=== PATIENT | female | born 1965 | race Caucasian/White ===

== ENCOUNTER → 2016-05-23 | Outpatient (CLI) | payer BC ==
[~2016-05-23] MED LIST: CHLO4TAB PO; ERGO500037 PO; FLUT50SP14 NAE; LORA10CA2 PO; MULTTAB58 PO; TYLER650 PO; biotin PO
--- NOTE | 2016-05-24 15:37 | MAMMOGRAPHY REPORT ---
BILATERAL DIGITAL SCREENING MAMMOGRAM TOMOSYNTHESIS WITH CAD: 05/23/2016 CLINICAL HISTORY: Routine screening. Patient has no complaints. TECHNIQUE: Breast tomosynthesis in addition to standard 2D mammography was performed. Current study was also evaluated with a Computer Aided Detection (CAD) system. COMPARISON: Comparison is made to exams dated: 06/08/2015 mammogram, 06/08/2015 stereotactic biopsy, 05/27/2015 mammogram, 05/27/2015 ultrasound, and 05/16/2014 mammogram - [facility]. BREAST COMPOSITION: The tissue of both breasts is heterogeneously dense, which may obscure small ma sses. FINDINGS: There are stable metallic biopsy markers in each upper outer quadrant. There are scattere d and grouped round and punctate microcalcifications, stable bilaterally. No new suspicious mass, a rchitectural distortion or cluster of microcalcifications is seen. IMPRESSION: ACR BI-RADS CATEGORY 1: NEGATIVE There is no mammographic evidence of malignancy. A 1 year screening mammogram is recommended. The p atient will receive written notification of the results. Approximately 10% of breast cancers are not detected with mammography. A negative mammographic repor t should not delay biopsy if a clinically suggestive mass is present. Mariam Canas M.D. ay/:05/24/2016 15:31:13 Freight Caller: Jes Lopez, [facility] letter sent: Normal 1/2 BI-RADS Code: ACR BI-RADS Category 1: Negative
== END | disposition home or self-care (01) ==
LOC: C.MAMM 07:53
PROVIDERS: ATTEND Internal Medicine
DX: Z12.31 Encounter for screening mammogram for malignant neoplasm of breast (principal)

== ENCOUNTER → 2017-06-27 | Outpatient (CLI) | payer BC ==
--- NOTE | 2017-06-29 08:01 | MAMMOGRAPHY REPORT ---
BILATERAL DIGITAL SCREENING MAMMOGRAM TOMOSYNTHESIS WITH CAD: 06/27/2017 CLINICAL HISTORY: Routine screening. Patient has no complaints. TECHNIQUE: Breast tomosynthesis in addition to standard 2D mammography was performed. Current study was also evaluated with a Computer Aided Detection (CAD) system. COMPARISON: Comparison is made to exams dated: 05/23/2016 mammogram, 05/18/2015 mammogram, 05/16/2014 m ammogram, 05/15/2013 mammogram, 05/09/2012 mammogram, and 05/04/2011 mammogram - [facility]. BREAST COMPOSITION: The tissue of both breasts is heterogeneously dense, which may obscure small mas ses. FINDINGS: No new suspicious mass, architectural distortion or cluster of suspicious microcalcificati ons is seen. There are diffuse round and punctate microcalcifications scattered in the breasts. Sta ble biopsy marker clips in each upper outer quadrant. IMPRESSION: ACR BI-RADS CATEGORY 1: NEGATIVE There is no mammographic evidence of malignancy. A 1 year screening mammogram is recommended. The pa tient will receive written notification of the results. Approximately 10% of breast cancers are not detected with mammography. A negative mammographic report should not delay biopsy if a clinically suggestive mass is present. Mariam Canas M.D. ay/:06/27/2017 17:08:27 Bale Sewer: Aundrea ZHU)(M), [facility] letter sent: Normal 1/2 BI-RADS Code: ACR BI-RADS Category 1: Negative
== END | disposition home or self-care (01) ==
LOC: C.MAMM 13:32
PROVIDERS: ATTEND Internal Medicine
DX: Z12.31 Encounter for screening mammogram for malignant neoplasm of breast (principal)

== ENCOUNTER 2023-04-20 15:37 | Inpatient (IN) ==
[2023-04-20 16:43] LABS: Basophils # (auto) 0.05 K/uL (0.00-0.20); Basophils % (auto) 0.9 %; Eosinophils # (auto) 0.08 K/uL (0.00-0.50); Eosinophils % (auto) 1.4 %; Hemoglobin 14.3 g/dl (12.0-16.0); Immature Granulocytes # (auto) 0.01 K/uL (0.01-0.20); Immature Granulocytes % (auto) 0.2 %; Lymphocytes # (auto) 1.16 K/uL (1.20-3.40); Lymphocytes % (auto) 20.1 %; Mean Corpuscular Hemoglobin 30.9 pg (25.0-34.0); Mean Corpuscular Hgb Conc 32.5 g/dL (32.0-36.0); Mean Platelet Volume 10.2 fL (9.4-12.4); Monocytes # (auto) 0.44 K/uL (0.11-0.59); Monocytes % (auto) 7.6 %; Neutrophils # (auto) 4.03 K/uL (1.40-6.50); Neutrophils % (auto) 69.8 %; Platelet Count 295 K/uL (130-400); RDW Coefficient of Variation 13.2 % (11.5-14.5); RDW Standard Deviation 45.5 fL (36.4-46.3); Red Blood Count 4.63 M/uL (4.20-5.40); White Blood Count 5.77 K/ul (4.8-10.8)
[2023-04-20 17:02] LABS: Albumin Globulin Ratio 1.5 (0.9-2); Albumin Level 4.4 gm/dl (3.4-5.0); BUN Creatinine Ratio 19.3 (10-20); Bilirubin,Total 0.5 mg/dl (0.2-1.0); Calcium 9.3 mg/dl (8.6-10.3); Creatinine Clr Calc Pharmacy 83.7 ml/min; Est GFR (African American) 90.1 ml/min; Est GFR (Non-African American) 77.7 ml/min; Globulin 2.9 gm/dl (2.5-4.0); Total Protein 7.3 gm/dl (6.0-8.3)
[2023-04-20 17:05] LABS: Appearance Urine Clear (Clear); Bilirubin Urine Negative (Negative); Blood Urine Negative (Negative); Color Urine Yellow; Glucose Urine UA Negative (Negative); Ketones Urine Trace (Negative); Leukocyte Esterase Urine Negative (Negative); Nitrite Urine Negative (Negative); Protein Urine Negative (Negative); Specific Gravity Urine 1.013 (1.000-1.030); Urobilinogen Urine Negative (Negative)
--- NOTE | 2023-04-20 19:58 | CT Scan Report ---
Exam(s): CT ABDOMEN + PELVIS Without Contrast EXAM: CT Abdomen and Pelvis Without Intravenous Contrast CLINICAL HISTORY: Reason for exam: right flank pain. TECHNIQUE: Axial computed tomography images of the abdomen and pelvis without intravenous contrast. CTDI is 27.66 mGy and DLP is 1294.13 mGy-cm. Automated exposure control was utilized for the study. A dose lowering technique was utilized adhering to the principles of ALARA. COMPARISON: CT abdomen/pelvis on 12/15/2009. FINDINGS: Lung bases: Lower lung atelectasis. Heart: Small to moderate pericardial effusion. ABDOMEN: Liver: Unremarkable. Gallbladder and bile ducts: Unremarkable. No calcified stones. No ductal dilation. Pancreas: Unremarkable. No ductal dilation. Spleen: Unremarkable. No splenomegaly. Adrenals: Unremarkable. No mass. Kidneys and ureters: Unremarkable. No hydronephrosis or stone. Stomach and bowel: Mild prominence of the wall of the ascending colon with mild fat stranding could represent colitis. Fluid and gas-filled small bowel loops may represent enteritis in the appropriate clinical setting. Evaluation of the stomach is limited by underdistention. Diverticulosis without evidence of diverticulitis. PELVIS: Appendix: Normal appendix. Bladder: Unremarkable. No stones. Reproductive: Unremarkable as visualized. ABDOMEN and PELVIS: Intraperitoneal space: Unremarkable. No free air. No significant fluid collection. Bones/joints: Grade 1/2 anterolisthesis of L5 on S1. Probable small bone islands in the L5 vertebral body and pelvic bones. Degenerative changes of the spine. No acute fracture. No dislocation. Soft tissues: Unremarkable. Vasculature: Phleboliths in the pelvis. No abdominal aortic aneurysm. Lymph nodes: Unremarkable. No enlarged lymph nodes. IMPRESSION: 1. Small to moderate pericardial effusion. 2. Mild prominence of the wall of the ascending colon with mild fat stranding could represent colitis. 3. Fluid and gas-filled small bowel loops may represent enteritis in the appropriate clinical setting. Electronically signed by: Pino Majano M.D. 04/20/23 19:57 PM
[2023-04-20] MEDS ORDERED: ACETAMINOPHEN 1,000 MG/100 ML VIAL IV STA (21:36)
[2023-04-20] MEDS ORDERED: SODIUM CHLORIDE 0.9% 1,000 ML IV ONE (21:41)
[2023-04-20 22:07] LABS: Magnesium 2.1 mg/dl (1.7-2.4)
[2023-04-20 22:15] LABS: Troponin I High Sensitivity 2.4 pg/ml (0-14)
--- OUTSIDE RECORDS SUMMARY | 2023-04-20 22:22 | External Medical Summary | Summary of Care ---
Author Name Unknown Organization [facility] Address [address] [place] [address] Phone [phone] Care Team Providers Care Director Of Volunteer Services Name Role Phone Rose Mary Mederos MD Primary Care Provider [phone] Reason for Visit * Reason Comments Acute Patient presents wit h concerns for mid back pain, on going for 1 month. Patient denied any injury that she is aware of. Encounter Details Date Type Department Care Team (Late st Contact Info) Description 04/18/2023 11:00 AM EST Office Visit General Internal Medicine [facility] [address] [place] [address] Shanon Doshi MD [address] [place] [address] Rt flank pain*; Spasm of muscle Allergies Active Allergy Reactions Criticality Noted Date Comments Ibuprofen 11/08/2017 GI upset, hemorrhoid bleeding Aspirin 01/11/2013 Dust 05/09/2016 Nickel Other (Please comment) 11/17/2009 Itching and rash Nsaids Bleeding,Nausea/vomi ti ng High 11/27/2018 Blood in stools Sulfa Antibiotics Itching 11/12/2008 documented as of this encounter (statuses as of 04/18/2023) Medications Medication Sig Dispensed Refills Start Date End Date Status EQ CHLORTABS 4 MG PO TABS Take by mouth. 0 Active CLARITIN 10 MG PO CAPS one tablet daily 0 Active TYLENOL EXTRA STRENGTH 500 MG PO TABS 1 TABLET EVERY 4 HOURS NEEDED 0 11/15/2013 Active FLUTICASONE PROPIONATE 50 MCG/ACT NA SUSPIndications:Supervisor Order Takers hari rhinitis 2 sprays in each nostril daily as needed 1 Inhaler 2 04/16/2014 Active Albuterol Sulfate HFA 108 (90 Base) MCG/ACT Inhalation Aerosol Solution Inhale 2 Puffs by mouth every 4 hours as needed. 0 09/30/2020 Active Estradiol 0.1 MG/GM Vaginal Cream (Estrace)Indications :Vaginal atrophy Administer 0.5 g into the vagina twice a week. Use at bedtime. Use as directed. 42.5 g 3 04/12/2022 Active Levothyroxine Sodium 75 MCG Oral Tablet (Levoxyl)Indications :Hypothyroidism, postsurgical TAKE 1 TABLET BY MOUTH ONCE DAILY AT LEAST 30 MINUTES BEFORE BREAKFAST OR OTHER MEDS 90 Tablet 3 07/18/2022 Active tiZANidine HCl 4 MG Oral Tablet (Zanaflex)Indication s:Rt flank pain,Spasm of muscle Take 1 Tablet by mouth every 8 hours as needed for Muscle spasms. 14 Tablet 0 04/18/2023 Active documented as of this encounter (statuses as of 04/18/2023) Active Problems Problem Noted Date Diagnosed Date Prolapsed internal hemorrhoids, grade 3 05/17/19 23 Mild episode of recurrent major depressive disor zeke 12/24/2021 Adjustment disorder with anxious mood 07/31/2015 TMJ (sprain of temporomandibular joint) 03/18/20 15 Plantar fasciitis 03/18/2015 SCHMITZ (dyspnea on exertion) 08/11/2014 Vitamin D deficiency 02/27/2013 Fatty liver 11/15/2011 Subjective tinnitus 10/07/2011 Palpitations 08/30/2010 Benign neoplasm of rectosigmoid junction 009 Overview: hyperplastic/repeat colonoscopy in 10 yrs History of diverticulitis Mitral valve prolapse Allergic sinusitis Hypothyroidism, postsurgical documented as of this encounter (statuses as of 04/18/2023) Resolved Problems Problem Noted Date Diagnosed Date Resolved Date Multinodular goiter 03/04/2014 02/11/20 16 Non-toxic multinodular goiter 02/25/2013 02/11/2016 Pericardial effusion 11/25/2011 016 Nontoxic uninodular goiter 1 Overview: rt side s/p biopsy - benign documented as of this encounter (statuses as of 04/18/2023) Immunizations Name Administration Dates Next Due COVID-19 mRNA, LNP-s, No Pre serve, 2-Dose Series (Folkstr) 02/17/2021 COVID-19, MRNA-LNP, 23-24, P F, 30 MCG/0.3 mL, 12 YRS AND ABOVE, IM ([facility]) 02/22/2023 Covid-19 Ad26, Single Dose (Brandnew IO/Vigme&Vigme) 07/05/2020 Covid-19, Mrna, Lnp-s, Pf, B ivalent, 30 Mcg, IM, 12 yrs and above (Folkstr) 03/02/2022 Hepatitis B, 20+ yrs 12/01/2022,10/31/2022 PPD 12/05/2011 Seasonal Influenza, PF, 6 M & above, IM , (FluLaval or Fluzone) 02/17/2023,12/24/2021,06/03/2021,2019,03/20/2019,02/10/2018,03/17/2017 Seasonal Influenza, Quadriva lent, No Preserve, IM 02/11/2016,02/04/2015 Seasonal Influenza, Split, I IV3, With Preserve, Inj 02/15/2014,02/09/2013,04/09/2012,2010,02/11/2010,02/02/2009 TD - Tetanus/Diptheria (ADULT) 04/24/2002 TD, Preservative Free 01/30/2020 TDAP (age 11 and older)(Adacel) 11/12/2009 Zoster Vaccine Recombinant (Shingrix) 09/17/2019 ,03/20/2019 documented as of this encounter Social History Tobacco Use Types Packs/Day Years Used Date Smoking Tobacco: Never Smokeless Tobacco: Never Tobacco Cessation:Counseling Given: Not Answered Alcohol Use Standard Drinks/Week Comments Yes 0 (1 standard drink = 0.6 oz pur e alcohol) rare AUDIT-C Answer Date Recorded Frequency of Alcohol Consumption Never 09/21/2018 Average Number of Drinks Not on file 019 Frequency of Binge Drinking Not on file 08/24 PHQ-2 Answer Date Recorded PHQ Adult Total Score 0 12/24/2021 Hunger Vital Sign Answer Date Recorded Within the past 12 months, y ou worried that your food would run out before you got the money to buy more. Never true 04/09/20 22 Within the past 12 months, t he food you bought just didn't last and you didn't have money to get more. Never true 04/09/2022 Sex and Gender Information Value Date Recorded Sex Assigned at Female 08/14/2018 8:52 AM EDT Gender Identity Female 08/14/2018 8:52 AM EDT Sexual Orientation Straight 08/14/2018 8: 52 AM EDT Job Start Date Occupation Industry Not on file Not on file Not on file documented as of this encounter Last Filed Vital Signs Vital Sign Reading Time Taken Comments Blood Pressure 118/78 04/18/2023 10:46 AM EST Pulse 73 04/18/2023 10:46 AM EST Temperature 36.1 C (96.9 F) 04/18/2023 10:[address] Respiratory Rate - - Oxygen Saturation 98% 04/18/2023 10:46 AM EST Inhaled Oxygen Concentration - - Weight 98.6 kg (217 lb 4.8 oz) 04/18/2023 10:46 AM EST Height 163.8 cm (5' 4.5") 04/18/2023 10:46 AM ES T Body Mass Index 36.72 04/18/2023 10:46 AM EST documented in this encounter Functional Status Functional Status Response Date of Assess ment Are you deaf or do you have serious difficulty h earing? No 04/09/2014 Are you blind or do you have serious difficulty seeing, even when wearing glasses? No 04/09/2014 Do you have serious difficul ty walking or climbing stairs? (5 years old or older) No 04/09/2014 Do you have difficulty dress ing or bathing? (5 years old or older) No 04/09/2014 Because of a physical, menta l, or emotional condition, do you have difficulty doing errands alone such as visiting a doctor s office or shopping? (15 years old or older) No 04/09/20 14 Cognitive Status Response Date of Assessm ent Because of a physical, menta l, or emotional condition, do you have serious difficulty concentrating, remembering, or making decisions? (5 years old or older) No 04/09/2014 documented as of this encounter Progress Notes * Shanon Doshi MD - 04/18/2023 10:53 AM EST SUBJECTIVE: Aviva Lloyd is a 57 year old female. Chief Complaint Patient presents with Acute Patient presents with concerns for mid back pain, on going for 1 month. Patient denied any injury that she is aware of. HPI: Patient presents today for acute appointment with the 2 week onset of symptoms, initially had pain on both sides of the mid back, last 2 days pain is mainly located on the right side, no radiation into the abdomen, it has a constant pain with variable intensity up to 8/10. Also admits to mild itch in the area. No rash. She had shingles vaccine as noted below. Took Tylenol 6 tablets yesterday. No urinary symptoms. No fever or chills. No falls or injuries. No history of similar symptoms in the past. Has not tried any heat or ice but states some when she sat in her 's car with a he did seat it helped No personal history of kidney stones but states sister had kidney stones Immunization History Administered Date(s) Administered COVID-19 mRNA, LNP-s, No Preserve, 2-Dose Series (Folkstr) 02/17/2021 COVID-19, MRNA-LNP, 23-24, PF, 30 MCG/0.3 mL, 12 YRS AND ABOVE, IM ([facility]- [facility]) 02/22/2023 Covid-19 Ad26, Single Dose (Brandnew IO/J&J) 07/05/2020 Covid-19, Mrna, Lnp-s, Pf, Bivalent, 30 Mcg, IM, 12 yrs and above (Folkstr) 03/02/2022 Hepatitis B, 20+ yrs 10/31/2022, 12/01/2022 PPD 12/05/2011 Seasonal Influenza, PF, 6 M & above, IM , (FluLaval or Fluzone) 03/17/2017, 02/10/2018, 03/20/2019, 01/30/2020, 06/03/2021, 12/24/2021, 02/17/2023 Seasonal Influenza, Quadrivalent, No Preserve, IM 02/04/2015, 02/11/2016 Seasonal Influenza, Split, IIV3, With Preserve, Inj 02/02/2009, 02/11/2010, 03/03/2011, 04/09/2012,02/09/2013, 02/15/2014 TD - Tetanus/Diptheria (ADULT) 04/24/2002 TD, Preservative Free 01/30/2020 TDAP (age 11 and older)(Adacel) 11/12/2009 Zoster Vaccine Recombinant (Shingrix) 03/20/2019, 09/17/2019 Patient Active Problem List Diagnosis Code History of diverticulitis Z87.19 Mitral valve prolapse I34.1 Allergic sinusitis J30.9 Benign neoplasm of rectosigmoid junction D12.7 Palpitations R00.2 Subjective tinnitus H93.19 Fatty liver K76.0 Vitamin D deficiency E55.9 SCHMITZ (dyspnea on exertion) R06.09 TMJ (sprain of temporomandibular joint) S03.40XA Plantar fasciitis M72.2 Hypothyroidism, postsurgical E89.0 Adjustment disorder with anxious mood F43.22 Mild episode of recurrent major depressive disorder (HCC) F33.0 Prolapsed internal hemorrhoids, grade 3 K64.2 Current Outpatient Medications Medication Sig Dispense Refill EQ CHLORTABS 4 MG PO TABS Take by mouth. CLARITIN 10 MG PO CAPS one tablet daily TYLENOL EXTRA STRENGTH 500 MG PO TABS 1 TABLET EVERY 4 HOURS NEEDED FLUTICASONE PROPIONATE 50 MCG/ACT NA SUSP 2 sprays in each nostril daily as needed 1 Inhaler 2 Levothyroxine Sodium 75 MCG Oral Tablet (Levoxyl) TAKE 1 TABLET BY MOUTH ONCE DAILY AT LEAST 30 MINUTES BEFORE BREAKFAST OR OTHER MEDS 90 Tablet 3 Albuterol Sulfate HFA 108 (90 Base) MCG/ACT Inhalation Aerosol Solution Inhale 2 Puffs by mouth every 4 hours as needed. Estradiol 0.1 MG/GM Vaginal Cream (Estrace) Administer 0.5 g into the vagina twice a week. Use at bedtime. Use as directed. 42.5 g 3 No current facility-administered medications for this visit. Review of patient's allergies indicates: Allergen Reactions Nsaids Bleeding and Nausea/vomiting Blood in stools Advil [Ibuprofen] GI upset, hemorrhoid bleeding Aspirin Dust Migdalia [Nickel] Other (Please comment) Itching and rash Sulfa Antibiotics Itching OBJECTIVE: BP 118/78 | Pulse 73 | Temp 36.1 C (96.9 F) | Ht 1.638 m (5' 4.5") | Wt 98.6 kg (217 lb 4.8 oz)| SpO2 98% | BMI 36.72 kg/m | BSA 2.12 m PHYSICAL EXAM: General: alert, healthy, no distress, well developed Heart: regular rhythm and rate,No murmurs. Lungs: lungs clear to auscultation Extremities: no edema Back-no rash, no spine tenderness, mild spasm of the right lower thoracic/lumbar muscle Full range of flexion, extension, side bending and lateral bending Results for orders placed or performed in visit on 04/18/23 URINALYSIS, POINT OF CARE (ENTER/EDIT) Result Value Ref Range Color, Urine Other Yellow or Light Yellow Clarity, Urine Clear Clear Glucose, Urine Negative Negative mg/dL Bilirubin, Urine Negative Negative Ketone, Urine Negative Negative mg/dL Specific Webster, Urine 1.010 1.003 - 1.030 Blood, Urine Negative Negative pH, Urine 6.0 5.0 - 7.5 units Protein, Urine Negative Negative mg/dL Urobilinogen, Urine 0.2 0.2 - 1.0 mg/dL Nitrite, Urine Negative Negative Esterase, Urine Negative Negative ASSESSMENT/PLAN: Rt flank pain (Primary) - URINALYSIS, POINT OF CARE (ENTER/EDIT)--neg - tiZANidine HCl 4 MG Oral Tablet (Zanaflex); Take 1 Tablet by mouth every 8 hours as needed for Muscle spasms. Spasm of muscle - tiZANidine HCl 4 MG Oral Tablet (Zanaflex); Take 1 Tablet by mouth every 8 hours as needed for Muscle spasms. Ct ROM ex. Advised to apply warm moist/cold compress to the affected areas for 15 minutes 3-4 times daily tillbetter. Trial of muscle relaxant, side effects have been discussed, if increased somnolence then may cut the tablet in half and take every 8 hours as needed Watch for any occurrence of skin rash, if so to take a picture and send it via portal and call the office. Follow Up: Return if symptoms worsen or fail to improve. (This note was completed using the dictation program Fluency Direct. As such, there may be misspellings, word substitutions, or other variations that should not change the essence of the clinical content of this encounter note. If there is need for further clarification, please direct questions to the provider listed above.) Patient and / caregiver verbalize understanding of above instructions and agrees with plan of care. Shanon Tico, MD 04/18/2023 documented in this encounter Nursing Notes * Monalisa Ramsey CMA - 04/18/2023 10:46 AM EST Chief Complaint Patient presents with Acute Patient presents with concerns for mid back pain, on going for 1 month. Patient denied any injury that she is aware of. documented in this encounter Plan of Treatment Upcoming Encounters Date Type Department Care Team (Late st Contact Info) Description 05/03/2023 9:40 AM EST Office Visit General Internal Medicine [facility] [place] [address] [facility] [place] [address] Rose Mary Mederos MD [address] [facility] [place] [address] Scheduled Procedures Name Priority Associated Diagnoses Date/Ti me COLONOSCOPY FLEXIBLE PROXIMAL DIAGNOSTIC Recall Screen for colon cancer Health Maintenance Due Date Last Done Comments Cologuard 2009 Fecal Occult Blood Test 2009 Sigmoidoscopy 2009 Depression Screening 12/24/2022 12/24/2021 Hepatitis B (3 of 3 - 19+ 3-dose series) 05/03/2023 12/01/2022, 10/31/2022 Mammogram 07/14/2023 07/13/2022, 06/22, 07/07/2020, Additional history exists TSH 10/28/2023 10/27/2022, 06/2022, 11/01/2021, Additional history exists Diabetes Screening 04/26/2025 04/26/2022, 0 04/26/2022, 11/01/2021, Additional history exists PAP SMEAR-EVERY 5 YRS,AGES 21-100 04/12/2027 04/12/2022, 09/21/2018, 09/21/2018, Additional history exists Lipid Panel 10/28/2027 10/27/2022, 10/22, 10/02/2020, Additional history exists Colonoscopy 12/14/2028 12/14/2018, 11/23, 11/25/2008 Colorectal Cancer Screening 12/14/2028 DTaP,Tdap,and Td Vaccines (3 - Td or Tdap) 01/29/2030 01/30/2020, 11/12/2009, 04/24/2002 Zoster Vaccines Completed 09/17/2019, 03/20/2019 Pap Smear Discontinued 04/12/2022, 08/24, 09/21/2018, Additional history exists Influenza Vaccine (FLU shot) Completed 02/17/2023, 12/24/2021, 06/03/2021, Additional history exists COVID-19 Vaccine Completed 02/22/2023, 12/2021, 02/17/2021, Additional history exists GARDASIL-HPV IMMUNIZATION SERIES Aged Out No longer eligible based on patient's age to complete this topic MENINGOCOCCAL (MENACTRA/MENVEO) Aged Out No longer eligible based on patient's age to complete this topic Pneumococcal Vaccine: Pediatrics (0 to 5 Years) and At-Risk Patients (6 to 64 Years) Aged Out No longer eligible based on patient's age to complete this topic documented as of this encounter Medical Devices Not on filedocumented as of this encounter Procedures Procedure Name Priority Date/Time Associated Diagnosis Comments URINALYSIS, POINT OF CARE (ENTER/EDIT) Routine 04/18/2023 Rt flank pain documented in this encounter Results * URINALYSIS, POINT OF CARE (ENTER/EDIT) (04/18/2023) Color, Urine Other Yellow or Light Yellow Clarity, Urine Clear Clear Glucose, Urine Negative Negative mg/dL Bilirubin, Urine Negative Negative Ketone, Urine Negative Negative mg/dL Specific Webster, Urine 1.010 1.003 - 1.030 Blood, Urine Negative Negative pH, Urine 6.0 5.0 - 7.5 units Protein, Urine Negative Negative mg/dL Urobilinogen, Urine 0.2 0.2 - 1.0 mg/dL Nitrite, Urine Negative Negative Esterase, Urine Negative Negative Urine 04/18/2023 Shanon Doshi MD LAB POINT OF CARE TE ST ENTER/EDIT ORDERABLES documented in this encounter Visit Diagnoses Diagnosis Rt flank pain- Primary Abdominal pain, unspecified site Spasm of muscle documented in this encounter Advance Directives Latest Code Status on File Code Status Date Activated Date Inactivated Comments Full Code 05/17/2022 1:09 PM 05/17/2022 8:18 PM This order reflects the patients wishes and were consensually agreed upon. Question Answer Comments Discussion of Advance Directives occurred with: Patient Code Status History Code Status Date Activated Date Inactivated Comments Full Code 04/09/2014 1:19 PM 04/10/2014 2:31 PM Question Answer Comments Discussion of Advance Direct marita occurred with: Not Discussed Does the patient have a Living Will? No Does the patient have Health Care Power of Copra Sampler? No Full Code 04/09/2014 8:41 AM 04/09/2014 1:19 PM Question Answer Comments Discussion of Advance Direct marita occurred with: Not Discussed Care Teams Director Of Volunteer Services Relationship Specialty Start Date End Date Rose Mary Mederos MD [address] [place] [id number] PCP - General 11/12/08 documented as of this encounter
[2023-04-20 22:25] LABS: Thyroid Stimulating Hormone 1.744 uIu/ml (0.300-4.500)
[2023-04-20] MEDS ORDERED: OPTIRAY 320 125ml IV ONE (22:26)
--- NOTE | 2023-04-20 23:16 | CT Scan Report ---
Exam(s): CTA CHEST IV Amt: 87 ml opti 320 EXAM: CT Angiography Chest With Intravenous Contrast CLINICAL HISTORY: Reason for exam: PE. TECHNIQUE: Axial computed tomographic angiography images of the chest with intravenous contrast. Automated exposure control was utilized for the study. A dose lowering technique was utilized adhering to the principles of ALARA. MIP reconstructed images were created and reviewed. COMPARISON: None available FINDINGS: Pulmonary arteries: Small nonocclusive pulmonary embolus within the right pulmonary artery. Aorta: No acute findings. No thoracic aortic aneurysm. Lungs: Unremarkable. No mass. No consolidation. Pleural space: Unremarkable. No significant effusion. No pneumothorax. Heart: Cardiomegaly with small posterior pericardial effusion measuring 12 mm. No right heart strain. Bones/joints: No acute fracture. No dislocation. Soft tissues: Unremarkable. Lymph nodes: Unremarkable. No enlarged lymph nodes. IMPRESSION: 1. Small nonocclusive pulmonary embolus within the right pulmonary artery. 2. No right heart strain. 3. Cardiomegaly with small posterior pericardial effusion measuring 12 mm. Communications: Call Doctor Pulmonary Embolism Electronically signed by: Radha Brennan MD 04/20/23 23:14 PM
[2023-04-20] MEDS ORDERED: Heparin IV Adult Wt-Based Standard *NO* INITIAL Bolus Protocol IV STA (23:50)
[2023-04-21 00:10] LABS: Partial Thromboplastin Ratio 1.1; Partial Thromboplastin Time 30 Seconds (21-31); Prothrombin Time 10.6 Seconds (9.0-12.0)
[2023-04-21] MEDS: HEPARIN SODIUM/DEXTROSE 25,000 UNITS/500 ML BAG IV SCH ×2 (00:37→20:54)
--- NOTE | 2023-04-21 00:57 | Emergency Department Note ---
History of Present Illness General Chief complaint: Back Injury/Pain Stated complaint: UPPER RT BACK PAIN/BELOW RIB CAGE Time Seen by Provider: 04/20/23 21:27 History of Present Illness Maximum Pain Intensity: 4 This 57-year-old female presents to the ER complaining of right mid upper back pain for the past several days. She saw the PCP and they tried muscle relaxants and pain meds with no improvement of symptoms. Symptoms are slightly worse with exertion and feels mildly short of breath. Patient denies chest pain, abdominal pain, vomiting, diarrhea, urinary symptoms, leg pain or swelling. No history of cardiac disease or PE. No history of kidney stones. Due to prolonged weights, protocols were initiated at triage by another provider. These were reviewed prior to evaluating the patient. Home Medications Medication Instructions Recorded Confirmed Type diphenhydramine HCl 25 mg capsule 25 mg PO .COMPLEX PRN 11/21/18 04/03/23 History fluticasone propionate 50 intranasal 11/21/18 04/03/23 History mcg/actuation nasal spray,suspension levothyroxine PO 11/21/18 04/03/23 History loratadine 10 mg tablet 10 mg PO DAILY 11/21/18 04/03/23 History multivitamin [Daily Multi-Vitamin] PO 11/21/18 04/03/23 History omega-3 fatty acids 1,000 mg 1,000 mg PO DAILY 10/17/19 04/03/23 History capsule (Fish Oil Concentrate) albuterol sulfate 90 mcg/actuation 2 puff inhalation Q4H PRN 09/30/20 04/03/23 Rx aerosol inhaler (ProAir HFA) shortness of breath or wheezing #1 inhaler Allergies Allergy/AdvReac Type Severity Reaction Status Date / Time Sulfa (Sulfonamide Allergy Mild REDNESS, Verified 04/03/23 09:27 Antibiotics) SWELLING aspirin AdvReac Severe INSTANT Verified 04/03/23 09:27 NAUSEA ibuprofen AdvReac Intermediate INDIGESTION Verified 04/03/23 09:27 Past Med/Surg History Surgical History S/P thyroid biopsy History of surgery on wrist excision of ganglion History of breast biopsy History of laparoscopy History of hysteroscopy with resection for intrauterine polyp removal and endometrial ablation History of foot surgery History of sinus surgery Family History Family/Other Coronary heart disease Diabetes Anaphylactic reaction to bee sting Mother Hypertension Social History Smoking Status: Never smoker Hx Alcohol Use: Yes Preferred Language: Armenian marital status: Current Living Situation: Family current occupational status: employed Feels Safe at Home: Yes Review of Systems A total of 10 systems reviewed and were otherwise negative Physical Exam Vital Signs Vital Signs - 24 hr 04/20/23 16:02 04/20/23 21:03 04/20/23 21:04 Temperature 36.5 C Temperature Source Temporal Artery Scan Pulse Rate 65 66 67 Pulse Rate [Right Finger] Pulse Rate from SpO2 Sensor 69 Pulse Rhythm [Right Finger] Pulse Strength [Right Finger] Respiratory Rate 18 17 Respiratory Effort / Characteristics Non-Labored Spontaneous Respiratory Depth Normal Respiratory Pattern Blood Pressure 154/100 H Blood Pressure [Left Arm] Blood Pressure Mean 118 Blood Pressure Mean [Left Arm] Blood Pressure Position Sitting Blood Pressure Position [Left Arm] Pulse Oximetry 100 99 Oxygen Delivery Method Room Air Room Air Sepsis Recent Fever Within 48 Hours No Sepsis New/Unexplained Change in Mental Status No Sepsis Action Taken by Nursing No Action Required 04/20/23 21:10 04/20/23 21:20 04/20/23 21:30 Temperature Temperature Source Pulse Rate 64 62 67 Pulse Rate [Right Finger] Pulse Rate from SpO2 Sensor 65 62 66 Pulse Rhythm [Right Finger] Pulse Strength [Right Finger] Respiratory Rate 17 16 17 Respiratory Effort / Characteristics Respiratory Depth Respiratory Pattern Blood Pressure 175/100 H Blood Pressure [Left Arm] Blood Pressure Mean 125 Blood Pressure Mean [Left Arm] Blood Pressure Position Blood Pressure Position [Left Arm] Pulse Oximetry 98 99 99 Oxygen Delivery Method Room Air Room Air Room Air Sepsis Recent Fever Within 48 Hours Sepsis New/Unexplained Change in Mental Status Sepsis Action Taken by Nursing 04/20/23 21:35 04/20/23 21:39 04/20/23 21:40 Temperature Temperature Source Pulse Rate 64 64 Pulse Rate [Right Finger] 67 Pulse Rate from SpO2 Sensor 64 63 Pulse Rhythm [Right Finger] Pulse Strength [Right Finger] Normal Respiratory Rate 17 19 18 Respiratory Effort / Characteristics Non-Labored Spontaneous Respiratory Depth Normal Respiratory Pattern Regular Blood Pressure 165/83 H Blood Pressure [Left Arm] 165/83 H Blood Pressure Mean 110 Blood Pressure Mean [Left Arm] 110 Blood Pressure Position Blood Pressure Position [Left Arm] Pulse Oximetry 99 99 97 Oxygen Delivery Method Room Air Room Air Room Air Sepsis Recent Fever Within 48 Hours Sepsis New/Unexplained Change in Mental Status Sepsis Action Taken by Nursing 04/20/23 21:50 04/20/23 22:00 04/20/23 22:10 Temperature Temperature Source Pulse Rate 63 63 61 Pulse Rate [Right Finger] Pulse Rate from SpO2 Sensor 63 62 61 Pulse Rhythm [Right Finger] Pulse Strength [Right Finger] Respiratory Rate 17 22 14 Respiratory Effort / Characteristics Respiratory Depth Respiratory Pattern Blood Pressure 155/95 H Blood Pressure [Left Arm] Blood Pressure Mean 115 Blood Pressure Mean [Left Arm] Blood Pressure Position Blood Pressure Position [Left Arm] Pulse Oximetry 99 98 98 Oxygen Delivery Method Room Air Room Air Room Air Sepsis Recent Fever Within 48 Hours Sepsis New/Unexplained Change in Mental Status Sepsis Action Taken by Nursing 04/20/23 22:30 04/20/23 22:31 04/20/23 22:40 Temperature Temperature Source Pulse Rate 67 64 67 Pulse Rate [Right Finger] Pulse Rate from SpO2 Sensor 64 67 Pulse Rhythm [Right Finger] Pulse Strength [Right Finger] Respiratory Rate 21 17 18 Respiratory Effort / Characteristics Respiratory Depth Respiratory Pattern Blood Pressure 171/85 H Blood Pressure [Left Arm] Blood Pressure Mean 113 Blood Pressure Mean [Left Arm] Blood Pressure Position Blood Pressure Position [Left Arm] Pulse Oximetry 98 99 Oxygen Delivery Method Room Air Room Air Sepsis Recent Fever Within 48 Hours Sepsis New/Unexplained Change in Mental Status Sepsis Action Taken by Nursing 04/20/23 23:00 Temperature Temperature Source Pulse Rate Pulse Rate [Right Finger] 60 Pulse Rate from SpO2 Sensor Pulse Rhythm [Right Finger] Regular Pulse Strength [Right Finger] Normal Respiratory Rate 17 Respiratory Effort / Characteristics Non-Labored Spontaneous Respiratory Depth Normal Respiratory Pattern Regular Blood Pressure Blood Pressure [Left Arm] 160/97 H Blood Pressure Mean Blood Pressure Mean [Left Arm] 118 Blood Pressure Position Blood Pressure Position [Left Arm] Lying Pulse Oximetry 98 Oxygen Delivery Method Room Air Sepsis Recent Fever Within 48 Hours Sepsis New/Unexplained Change in Mental Status Sepsis Action Taken by Nursing VITALS: Vitals are noted on the nurse's note and reviewed by myself. Vital signs stable. GENERAL: Pleasant female, in no acute distress, nondiaphoretic, well-developed well-nourished. SKIN: Capillary reflex less than 2 seconds. No signs of shingles HEENT: Normocephalic. PERRLA. EOMI. Nares patent. Mucous membranes moist. Neck is supple without nuchal rigidity. HEART: Regular rate and rhythm LUNGS: Clear to auscultation bilaterally without wheezes, rales or rhonchi. No retractions or accessory muscle use. ABDOMEN: Positive bowel sounds x 4. Normal tympanic percussion. Soft, nontender, without masses or organomegaly. Rivas sign negative. No guarding or rebound tenderness. No CVA tenderness MUSCULOSKELETAL: No gross musculoskeletal defects. No thoracic or spinal tenderness. NEURO: Patient was alert and oriented to person place and time. No focal neurological deficits. Course Administered Medications Heparin Sodium/Dextrose (Heparin Sodium/Dextrose) 25,000 units in 500 mls @ 26 mls/hr IV .[id number] [facility]; Protocol Stop: 05/21/23 00:14 Last Admin: 04/21/23 00:37 Dose: 1,300 units/hr, 26 mls/hr Documented By: JASWINDER Co-signed By: MARISOL Discontinued Medications Acetaminophen (Ofirmev) 1,000 mg in 100 mls @ 400 mls/hr IV NOW STA Stop: 04/20/23 21:50 Last Infusion: 04/20/23 22:46 Dose: Infused Documented By: Admin: 04/20/23 22:03 Dose: 400 mls/hr Documented By: EMIL Sodium Chloride (Nss) 1,000 mls @ 999 mls/hr IV .Q1H1M ONE Stop: 04/20/23 22:41 Last Infusion: 04/21/23 00:18 Dose: Infused Documented By: Admin: 04/20/23 22:03 Dose: 999 mls/hr Documented By: EMIL Ioversol (Optiray 320 125ml) 87 ml IV ONCE ONE Stop: 04/20/23 22:27 Last Admin: 04/20/23 22:26 Dose: 87 ml Documented By: YUDELKA Critical Care Time Critical Care Time: Yes Total Critical Care Time: 35 I have personally spent 35 minutes of critical care time in the direct management of this patient. This includes bedside care, interpretation of diagnostic studies, and testing, discussion with consultants, patient, and family members, and other required patient management activities. This 35 minutes is in excess of all separately billable procedures. Medical Decision Making Medical Records Attestation: I reviewed the patient's medical records. Home Medications Current Medication List: was personally reviewed by me Laboratory Data Attestation: I reviewed the patient's lab results. 04/20/23 16:27 04/20/23 16:27 Lab Results 04/20/23 04/20/23 04/20/23 Range/Units 00:01 16:27 16:35 WBC 5.77 (4.8-10.8) K/ul RBC 4.63 (4.20-5.40) M/uL Hgb 14.3 (12.0-16.0) g/dl Hct 44.0 (37.0-47.0) % MCV 95.0 (80.0-100.0) fL MCH 30.9 (25.0-34.0) pg MCHC 32.5 (32.0-36.0) g/dL RDW Std Deviation 45.5 (36.4-46.3) fL RDW Coeff of Celestino 13.2 (11.5-14.5) % Plt Count 295 (130-400) K/uL MPV 10.2 (9.4-12.4) fL Immature Gran % (Auto) 0.2 % Neut % (Auto) 69.8 % Lymph % (Auto) 20.1 % Toole % (Auto) 7.6 % Eos % (Auto) 1.4 % Baso % (Auto) 0.9 % Neut # (Auto) 4.03 (1.40-6.50) K/uL Lymph # (Auto) 1.16 L (1.20-3.40) K/uL Toole # (Auto) 0.44 (0.11-0.59) K/uL Eos # (Auto) 0.08 (0.00-0.50) K/uL Baso # (Auto) 0.05 (0.00-0.20) K/uL Immature Gran # (Auto) 0.01 (0.01-0.20) K/uL PT 10.6 (9.0-12.0) Seconds INR 1.0 (0.9-1.1) APTT 30 (21-31) Seconds PTT Ratio 1.1 Sodium 139 (136-145) mmol/L Potassium 4.0 (3.5-5.1) mmol/L Chloride 106 (98-107) mmol/L Carbon Dioxide 26 (21-32) mmol/L Anion Gap 7 (3-11) BUN 16 (6-23) mg/dl Creatinine 0.83 (0.6-1.2) mg/dl Est Cr Clr Drug Dosing 83.7 ml/min Est GFR ( Amer) 90.1 ml/min Est GFR (Non-Af Amer) 77.7 ml/min BUN/Creatinine Ratio 19.3 (10-20) Glucose 96 (70-99(Fasting)) mg/dl Calcium 9.3 (8.6-10.3) mg/dl Magnesium 2.1 (1.7-2.4) mg/dl Total Bilirubin 0.5 (0.2-1.0) mg/dl AST 23 (13-39) U/L ALT 21 (7-52) U/L Alkaline Phosphatase 45 (34-104) U/L Troponin I High Sens 2.4 (0-14) pg/ml Total Protein 7.3 (6.0-8.3) gm/dl Albumin 4.4 (3.4-5.0) gm/dl Globulin 2.9 (2.5-4.0) gm/dl Albumin/Globulin Ratio 1.5 (0.9-2) TSH 1.744 (0.300-4.500) uIu/ml Urine Color Yellow Urine Appearance Clear (Clear) Urine pH 5.0 (4.5-7.5) Ur Specific Rifton 1.013 (1.000-1.030) Urine Protein Negative (Negative) Urine Glucose (UA) Negative (Negative) Urine Ketones Trace H (Negative) Urine Blood Negative (Negative) Urine Nitrite Negative (Negative) Urine Bilirubin Negative (Negative) Urine Urobilinogen Negative (Negative) Ur Leukocyte Esterase Negative (Negative) Imaging Data Attestation: I personally reviewed and interpreted this imaging study as follows: Radiologist's Impression: Abdomen/Pelvis CT 04/20/23 17:46 Exam(s): CT ABDOMEN + PELVIS Without Contrast EXAM: CT Abdomen and Pelvis Without Intravenous Contrast CLINICAL HISTORY: Reason for exam: right flank pain. TECHNIQUE: Axial computed tomography images of the abdomen and pelvis without intravenous contrast. CTDI is 27.66 mGy and DLP is 1294.13 mGy-cm. Automated exposure control was utilized for the study. A dose lowering technique was utilized adhering to the principles of ALARA. COMPARISON: CT abdomen/pelvis on 12/15/2009. FINDINGS: Lung bases: Lower lung atelectasis. Heart: Small to moderate pericardial effusion. ABDOMEN: Liver: Unremarkable. Gallbladder and bile ducts: Unremarkable. No calcified stones. No ductal dilation. Pancreas: Unremarkable. No ductal dilation. Spleen: Unremarkable. No splenomegaly. Adrenals: Unremarkable. No mass. Kidneys and ureters: Unremarkable. No hydronephrosis or stone. Stomach and bowel: Mild prominence of the wall of the ascending colon with mild fat stranding could represent colitis. Fluid and gas-filled small bowel loops may represent enteritis in the appropriate clinical setting. Evaluation of the stomach is limited by underdistention. Diverticulosis without evidence of diverticulitis. PELVIS: Appendix: Normal appendix. Bladder: Unremarkable. No stones. Reproductive: Unremarkable as visualized. ABDOMEN and PELVIS: Intraperitoneal space: Unremarkable. No free air. No significant fluid collection. Bones/joints: Grade 1/2 anterolisthesis of L5 on S1. Probable small bone islands in the L5 vertebral body and pelvic bones. Degenerative changes of the spine. No acute fracture. No dislocation. Soft tissues: Unremarkable. Vasculature: Phleboliths in the pelvis. No abdominal aortic aneurysm. Lymph nodes: Unremarkable. No enlarged lymph nodes. IMPRESSION: 1. Small to moderate pericardial effusion. 2. Mild prominence of the wall of the ascending colon with mild fat stranding could represent colitis. 3. Fluid and gas-filled small bowel loops may represent enteritis in the appropriate clinical setting. Electronically signed by: Pino Majano M.D. 04/20/23 19:57 PM Chest CTA 04/20/23 21:36 CR Exam(s): CTA CHEST IV Amt: 87 ml opti 320 EXAM: CT Angiography Chest With Intravenous Contrast CLINICAL HISTORY: Reason for exam: PE. TECHNIQUE: Axial computed tomographic angiography images of the chest with intravenous contrast. Automated exposure control was utilized for the study. A dose lowering technique was utilized adhering to the principles of ALARA. MIP reconstructed images were created and reviewed. COMPARISON: None available FINDINGS: Pulmonary arteries: Small nonocclusive pulmonary embolus within the right pulmonary artery. Aorta: No acute findings. No thoracic aortic aneurysm. Lungs: Unremarkable. No mass. No consolidation. Pleural space: Unremarkable. No significant effusion. No pneumothorax. Heart: Cardiomegaly with small posterior pericardial effusion measuring 12 mm. No right heart strain. Bones/joints: No acute fracture. No dislocation. Soft tissues: Unremarkable. Lymph nodes: Unremarkable. No enlarged lymph nodes. IMPRESSION: 1. Small nonocclusive pulmonary embolus within the right pulmonary artery. 2. No right heart strain. 3. Cardiomegaly with small posterior pericardial effusion measuring 12 mm. Communications: Call Doctor Pulmonary Embolism Electronically signed by: Radha Brennan MD 04/20/23 23:14 PM MDM Narrative Prior records/ancillary studies reviewed and summarized above. Nursing notes reviewed. Additional history obtained from nursing. The patient's history was concerning for right mid upper back pain. Differential diagnosis: Etiologies such as pulmonary, cardiac, metabolic, infection, hypo/hyperglycemia, electrolyte abnormalities, cardiac sources, intracerebral event, toxicologic, neurologic, as well as others were entertained. Physical examination: As above. ER treatment provided: IV Lock An order was placed for continuous cardiac monitoring. The monitor shows a rate of 60-100 with a sinus rhythm per my interpretation. Heparin was ordered for PE On reassessment the patient felt better. Diagnostics interpretation by me: ECG: Ordered for upper back pain EKG: Normal sinus, low voltage, no acute ST-T wave changes. Impression normal sinus rhythm low voltage pain interpreted by myself The labs Independently Interpreted by myself revealed Negative troponin. Normal coags. Hypercoagulable workup was initiated Imaging studies: CT is concerning for PE in the right lower lung per my independent termination and per report as above. Consultation: A consultation was placed with the hospitalist. The case was discussed and diagnostics were reviewed. The patient was evaluated in the ER for further treatment. Exam and history seem consistent with new PE in the right lower lung with pericardial effusion. Hypercoagulable workup was initiated. Case is discussed with medicine and is recommending heparin without bolus. This was ordered per their request. Results reviewed with patient and patient is agreeable treatment plan of admission. Patient be admitted to the medical service. By the evaluation outlined above emergent etiologies such as infection, electrolyte abnormalities, intracerebral event, toxologic, neurologic, abnormalities blood glucose, metabolic, as well as others were deemed relatively unlikely. The pt informed about the findings as listed above. All questions were answered and pleased with the treatment. The chart was completed utilizing [employer] voice recognition software. Grammatical errors, random word insertions, pronoun errors, and incomplete sentences are an occassional consequence of this system due to software limitations, ambient noise, and hardware issues. Any formal questions or concerns about the content, text, or information contained within the body of this dictation should be directly addressed to the physician legal administrative assistant for clarification. Impression & Plan Pulmonary embolism, Acute pericardial effusion Discharge Plan Visit Data Chief Complaint: Back Injury/Pain Stated Complaint: UPPER RT BACK PAIN/BELOW RIB CAGE ED Provider: Pietro Camara ED Midlevel Provider: Christina Mixon Discharge Problem: Pulmonary embolism, Acute pericardial effusion Patient Disposition: Admitted As Inpatient Condition: Good Forms Stand Alone Forms: My [employer] Prescriptions Prescriptions: No Action albuterol sulfate [ProAir HFA] 90 mcg/actuation HFA aerosol inhaler 2 puff inhalation Q4H PRN (Reason: shortness of breath or wheezing) Qty: 1 11RF diphenhydramine HCl 25 mg capsule 25 mg PO .COMPLEX PRN Patient Comments: 25 mg PO Take capsule as needed PRN; Rx Instructions: 25 mg PO Take capsule as needed PRN; loratadine 10 mg tablet 10 mg PO DAILY fluticasone propionate 50 mcg/actuation spray,suspension intranasal multivitamin PO levothyroxine PO omega-3 fatty acids [Fish Oil Concentrate] 1,000 mg capsule 1,000 mg PO DAILY Referrals Referrals: Rose Mary Mederos MD [Primary Care Provider] - Discharge Problem: Pulmonary embolism Qualifiers: Pulmonary embolism type: unspecified Chronicity: acute Acute cor pulmonale presence: without acute cor pulmonale Qualified Code(s): I26.99 - Other pulmonary embolism without acute cor pulmonale
[2023-04-21] MEDS ORDERED: MoRPHine SULFATE 4 MG/ML 1 ML CARP\\VIAL IV STA (01:19)
--- NOTE | 2023-04-21 03:08 | History & Physical Report ---
Date of Service April 21, 2023 Assessment & Plan (1) Pulmonary embolism: Plan: 57-year-old female with past medical history significant for hypothyroidism, dyspnea on exertion, history of mitral valve prolapse, benign neoplasm of rectosigmoid junction, plantar fasciitis, history of diverticulitis, history of depression, presents with 1 week of back spasms. Saw PCP yesterday was prescribed muscle relaxant but it was not helping so he came here and imaging studies showed right pulm embolism. Currently denies any chest pain or shortness of breath. Patient had workup with stress echo in December 2022 for dyspnea on exertion which was negative but showed small pericardial effusion. Denies any fevers. No headache. No abdominal pain. Normal bowel and bladder movements. Currently resting comfortably and hemodynamically stable. Acute pulmonary embolism Small nonocclusive pulm embolus in the right pulmonary artery Having right upper back spasms for last 1 week Patient states lately she has been more sedentary Will follow echo and lower EXTR Dopplers Close monitor Duration of anticoagulation as per PCP or heme-onc Pericardial effusion Small posterior pericardial fusion on the CAT scan Was also found in the stress echo done on December 2002 Will follow echo Possible colitis on CAT scan Patient does not seem to have any symptoms. Needs follow-up Hypothyroidism On Synthyroid DVT prophylaxis IV heparin Disposition Med/tele Full code History of Present Illness Chief Complaint: Upper back spasms and found to be have pulmonary embolism Primary Care Provider: Rose Mary Mederos MD 57-year-old female with past medical history significant for hypothyroidism, dyspnea on exertion, history of mitral valve prolapse, benign neoplasm of rectosigmoid junction, plantar fasciitis, history of diverticulitis, history of depression, presents with 1 week of back spasms. Saw PCP yesterday was prescribed muscle relaxant but it was not helping so he came here and imaging studies showed right pulm embolism. Currently denies any chest pain or shortness of breath. Patient had workup with stress echo in December 2022 for dyspnea on exertion which was negative but showed small pericardial effusion. Denies any fevers. No headache. No abdominal pain. Normal bowel and bladder movements. Currently resting comfortably and hemodynamically stable. Past medical history. As mentioned above Past surgical history. Uterine fibroids ablation. Breast biopsy. Colonoscopy. Hemorrhoidectomy. Right total thyroidectomy. Sinus surgery Social history. . No smoking. Alcohol rare. No drug use. Family history. Sister had breast cancer. Mother had diabetes, hypertension. Father has hypertension. Brother had pancreatic cancer Allergies Allergy/AdvReac Type Severity Reaction Status Date / Time Sulfa (Sulfonamide Allergy Mild REDNESS, Verified 04/03/23 09:27 Antibiotics) SWELLING aspirin AdvReac Severe INSTANT Verified 04/03/23 09:27 NAUSEA ibuprofen AdvReac Intermediate INDIGESTION Verified 04/03/23 09:27 Home Medications Medication Instructions Recorded Confirmed Type levothyroxine 75 mcg tablet 75 mcg PO DAILY 04/21/23 04/21/23 History tizanidine 4 mg tablet 4 mg PO TID PRN Muscle Spasm 04/21/23 04/21/23 History Past Med/Surg History Surgical History S/P thyroid biopsy History of surgery on wrist excision of ganglion History of breast biopsy History of laparoscopy History of hysteroscopy with resection for intrauterine polyp removal and endometrial ablation History of foot surgery History of sinus surgery Family History Family/Other Coronary heart disease Diabetes Anaphylactic reaction to bee sting Mother Hypertension Social History Smoking Status: Never smoker Hx Alcohol Use: Yes Preferred Language: Khmer marital status: Current Living Situation: Family current occupational status: employed Feels Safe at Home: Yes Review of Systems Review of Systems: All systems reviewed & are unremarkable except as noted in HPI & below Physical Exam Physical Exam: General- Not in distress Head- atraumatic Eyes- PERRL. ENT- oropharynx clear Neck- supple, no JVD. Lungs- clear to auscultation, no wheezing or crackles. Heart- regular rhythm; no murmur, no gallop. Abdomen- normal bowel sounds, soft, nontender, no distension. Extremities- no pretibial edema, no erythema. no calf tenderness Neuro- alert, oriented x 3; PERRL, no facial palsy; no dysarthria; moves extremities. Skin- warm & dry Results & Data Results & Data Vital Signs (Past 12 Hours) Vital Signs Temp Pulse Pulse Resp BP BP Pulse Ox 04/21/23 02:00 58 L 10 L 125/72 96 04/21/23 01:17 59 L 04/21/23 01:00 62 20 98 04/21/23 01:00 147/84 H 04/21/23 00:30 138/83 04/21/23 00:30 64 17 99 04/21/23 00:00 178/97 H 04/21/23 00:00 69 14 100 04/20/23 23:31 63 15 98 04/20/23 23:31 138/83 04/20/23 23:01 60 13 100 04/20/23 23:01 160/97 H 04/20/23 23:00 65 17 98 04/20/23 23:00 60 17 160/97 H 98 04/20/23 22:40 67 18 99 04/20/23 22:31 64 17 171/85 H 98 04/20/23 22:30 67 21 04/20/23 22:10 61 14 98 04/20/23 22:00 63 22 155/95 H 98 04/20/23 21:50 63 17 99 04/20/23 21:40 64 18 97 04/20/23 21:39 64 19 165/83 H 99 04/20/23 21:35 67 17 165/83 H 99 04/20/23 21:30 67 17 175/100 H 99 04/20/23 21:20 62 16 99 04/20/23 21:10 64 17 98 04/20/23 21:04 67 17 99 04/20/23 21:03 66 04/20/23 16:02 36.5 C 65 18 154/100 H 100 O2 Del Method 04/21/23 02:00 04/21/23 01:17 04/21/23 01:00 04/21/23 01:00 04/21/23 00:30 04/21/23 00:30 04/21/23 00:00 04/21/23 00:00 04/20/23 23:31 04/20/23 23:31 04/20/23 23:01 04/20/23 23:01 04/20/23 23:00 04/20/23 23:00 Room Air 04/20/23 22:40 Room Air 04/20/23 22:31 Room Air 04/20/23 22:30 04/20/23 22:10 Room Air 04/20/23 22:00 Room Air 04/20/23 21:50 Room Air 04/20/23 21:40 Room Air 04/20/23 21:39 Room Air 04/20/23 21:35 Room Air 04/20/23 21:30 Room Air 04/20/23 21:20 Room Air 04/20/23 21:10 Room Air 04/20/23 21:04 Room Air 04/20/23 21:03 04/20/23 16:02 Room Air Diagnostic Findings Laboratory Results WBC 5.77 K/ul (4.8-10.8) 04/20/23 16:27 RBC 4.63 M/uL (4.20-5.40) 04/20/23 16:27 Hgb 14.3 g/dl (12.0-16.0) 04/20/23 16:27 Hct 44.0 % (37.0-47.0) 04/20/23 16:27 MCV 95.0 fL (80.0-100.0) 04/20/23 16: MCH 30.9 pg (25.0-34.0) 04/20/23 16:27 MCHC 32.5 g/dL (32.0-36.0) 04/20/23 16:27 RDW Std Deviation 45.5 fL (36.4-46.3) 04/20/23 16:27 RDW Coeff of Celestino 13.2 % (11.5-14.5) 04/20/23 16:27 Plt Count 295 K/uL (130-400) 04/20/23 16:27 MPV 10.2 fL (9.4-12.4) 04/20/23 16:27 Immature Gran % (Auto) 0.2 % 04/20/23 16: Neut % (Auto) 69.8 % 04/20/23 16:27 Lymph % (Auto) 20.1 % 04/20/23 16: Mckenzie % (Auto) 7.6 % 04/20/23 16: Eos % (Auto) 1.4 % 04/20/23 16: Baso % (Auto) 0.9 % 04/20/23 16: Neut # (Auto) 4.03 K/uL (1.40-6.50) 04/20/23 16:27 Lymph # (Auto) 1.16 K/uL (1.20-3.40) L 04/20/23 16:27 Mckenzie # (Auto) 0.44 K/uL (0.11-0.59) 04/20/23 16:27 Eos # (Auto) 0.08 K/uL (0.00-0.50) 04/20/23 16:27 Baso # (Auto) 0.05 K/uL (0.00-0.20) 04/20/23 16: Immature Gran # (Auto) 0.01 K/uL (0.01-0.20) 04/20/23 16:27 PT 10.6 Seconds (9.0-12.0) 04/20/23 00:01 INR 1.0 (0.9-1.1) 04/20/23 00:01 APTT 30 Seconds (21-31) 04/20/23 00:01 PTT Ratio 1.1 04/20/23 00:01 Sodium 139 mmol/L (136-145) 04/20/23 16:27 Potassium 4.0 mmol/L (3.5-5.1) 04/20/23 16:27 Chloride 106 mmol/L (98-107) 04/20/23 16:27 Carbon Dioxide 26 mmol/L (21-32) 04/20/23 16:27 Anion Gap 7 (3-11) 04/20/23 16:27 BUN 16 mg/dl (6-23) 04/20/23 16:27 Creatinine 0.83 mg/dl (0.6-1.2) 04/20/23 16:27 Est Cr Clr Drug Dosing 83.7 ml/min 04/20/23 16:27 Est GFR ( Amer) 90.1 ml/min 04/20/23 16:27 Est GFR (Non-Af Amer) 77.7 ml/min 04/20/23 16:27 BUN/Creatinine Ratio 19.3 (10-20) 04/20/23 16:27 Glucose 96 mg/dl (70-99(Fasting)) 04/20/23 16:27 Calcium 9.3 mg/dl (8.6-10.3) 04/20/23 16:27 Magnesium 2.1 mg/dl (1.7-2.4) 04/20/23 16:27 Total Bilirubin 0.5 mg/dl (0.2-1.0) 04/20/23 16: AST 23 U/L (13-39) 04/20/23 16:27 ALT 21 U/L (7-52) 04/20/23 16:27 Alkaline Phosphatase 45 U/L (34-104) 04/20/23 16:27 Troponin I High Sens 2.4 pg/ml (0-14) 04/20/23 16:27 Total Protein 7.3 gm/dl (6.0-8.3) 04/20/23 16:27 Albumin 4.4 gm/dl (3.4-5.0) 04/20/23 16:27 Globulin 2.9 gm/dl (2.5-4.0) 04/20/23 16: Albumin/Globulin Ratio 1.5 (0.9-2) 04/20/23 16:27 TSH 1.744 uIu/ml (0.300-4.500) 04/20/23 16:27 Urine Color Yellow 04/20/23 16:35 Urine Appearance Clear (Clear) 04/20/23 16:35 Urine pH 5.0 (4.5-7.5) 04/20/23 16:35 Ur Specific [place] 1.013 (1.000-1.030) 04/20/23 16:35 Urine Protein Negative (Negative) 04/20/23 16:35 Urine Glucose (UA) Negative (Negative) 04/20/23 16:35 Urine Ketones Trace (Negative) H 04/20/23 16:35 Urine Blood Negative (Negative) 04/20/23 16:35 Urine Nitrite Negative (Negative) 04/20/23 16:35 Urine Bilirubin Negative (Negative) 04/20/23 16:35 Urine Urobilinogen Negative (Negative) 04/20/23 16:35 Ur Leukocyte Esterase Negative (Negative) 04/20/23 16:35 Impressions Abdomen/Pelvis CT 04/20/23 17:46 Exam(s): CT ABDOMEN + PELVIS Without Contrast EXAM: CT Abdomen and Pelvis Without Intravenous Contrast CLINICAL HISTORY: Reason for exam: right flank pain. TECHNIQUE: Axial computed tomography images of the abdomen and pelvis without intravenous contrast. CTDI is 27.66 mGy and DLP is 1294.13 mGy-cm. Automated exposure control was utilized for the study. A dose lowering technique was utilized adhering to the principles of ALARA. COMPARISON: CT abdomen/pelvis on 12/15/2009. FINDINGS: Lung bases: Lower lung atelectasis. Heart: Small to moderate pericardial effusion. ABDOMEN: Liver: Unremarkable. Gallbladder and bile ducts: Unremarkable. No calcified stones. No ductal dilation. Pancreas: Unremarkable. No ductal dilation. Spleen: Unremarkable. No splenomegaly. Adrenals: Unremarkable. No mass. Kidneys and ureters: Unremarkable. No hydronephrosis or stone. Stomach and bowel: Mild prominence of the wall of the ascending colon with mild fat stranding could represent colitis. Fluid and gas-filled small bowel loops may represent enteritis in the appropriate clinical setting. Evaluation of the stomach is limited by underdistention. Diverticulosis without evidence of diverticulitis. PELVIS: Appendix: Normal appendix. Bladder: Unremarkable. No stones. Reproductive: Unremarkable as visualized. ABDOMEN and PELVIS: Intraperitoneal space: Unremarkable. No free air. No significant fluid collection. Bones/joints: Grade 1/2 anterolisthesis of L5 on S1. Probable small bone islands in the L5 vertebral body and pelvic bones. Degenerative changes of the spine. No acute fracture. No dislocation. Soft tissues: Unremarkable. Vasculature: Phleboliths in the pelvis. No abdominal aortic aneurysm. Lymph nodes: Unremarkable. No enlarged lymph nodes. IMPRESSION: 1. Small to moderate pericardial effusion. 2. Mild prominence of the wall of the ascending colon with mild fat stranding could represent colitis. 3. Fluid and gas-filled small bowel loops may represent enteritis in the appropriate clinical setting. Electronically signed by: Pino Majano M.D. 04/20/23 19:57 PM Chest CTA 04/20/23 21:36 CR Exam(s): CTA CHEST IV Amt: 87 ml opti 320 EXAM: CT Angiography Chest With Intravenous Contrast CLINICAL HISTORY: Reason for exam: PE. TECHNIQUE: Axial computed tomographic angiography images of the chest with intravenous contrast. Automated exposure control was utilized for the study. A dose lowering technique was utilized adhering to the principles of ALARA. MIP reconstructed images were created and reviewed. COMPARISON: None available FINDINGS: Pulmonary arteries: Small nonocclusive pulmonary embolus within the right pulmonary artery. Aorta: No acute findings. No thoracic aortic aneurysm. Lungs: Unremarkable. No mass. No consolidation. Pleural space: Unremarkable. No significant effusion. No pneumothorax. Heart: Cardiomegaly with small posterior pericardial effusion measuring 12 mm. No right heart strain. Bones/joints: No acute fracture. No dislocation. Soft tissues: Unremarkable. Lymph nodes: Unremarkable. No enlarged lymph nodes. IMPRESSION: 1. Small nonocclusive pulmonary embolus within the right pulmonary artery. 2. No right heart strain. 3. Cardiomegaly with small posterior pericardial effusion measuring 12 mm. Communications: Call Doctor Pulmonary Embolism Electronically signed by: Radha Brennan MD 04/20/23 23:14 PM ECG Additional Comments: ECG. Sinus bradycardia with rate of 57. No significant change was found. Code Status & VTE Plan VTE Prophylaxis Plan VTE Prophylaxis will be ordered: Yes (1) Pulmonary embolism Acute cor pulmonale presence: without acute cor pulmonale Chronicity: acute Pulmonary embolism type: unspecified Qualified Code(s): I26.99 - Other pulmonary embolism without acute cor pulmonale
[2023-04-21] MEDS ORDERED: POLYETHYLENE (MIRALAX) 17 GM PACK PO PRN (04:14)
[2023-04-21] MEDS ORDERED: oxyCODONE HCL IR 5 MG TAB (IMMEDIATE RELEASE) PO PRN (04:14)
[2023-04-21] MEDS ORDERED: NITROGLYCERIN SL 0.4 MG/TAB TAB SL PRN (04:14)
[2023-04-21] MEDS ORDERED: SODIUM CHLORIDE 0.9% 1,000 ML IV SCH (04:14)
[2023-04-21] MEDS: LEVOTHYROXINE SODIUM 75 MCG TABLET PO SCH (08:52)
--- NOTE | 2023-04-21 10:02 | Ultrasound Report ---
BILATERAL LOWER EXTREMITY VENOUS DOPPLER HISTORY: Screening study in a patient with pulmonary emboli Acute PE.DVT? COMPARISON STUDY: None. FINDINGS: There is normal compressibility, flow, and augmentation within the bilateral lower extremit y deep venous systems. IMPRESSION: No DVT within the right or left lower extremity. ACT 112: Negative or not required by law. Electronically signed by: Richi Paniagua M.D. 04/21/2023 10:01 AM
[2023-04-21 10:11] LABS: Basophils # (auto) 0.05 K/uL (0.00-0.20); Basophils % (auto) 0.8 %; Eosinophils # (auto) 0.14 K/uL (0.00-0.50); Eosinophils % (auto) 2.3 %; Hematocrit (blood only) 40.9 % (37.0-47.0); Hemoglobin 13.5 g/dl (12.0-16.0); Immature Granulocytes # (auto) 0.01 K/uL (0.01-0.20); Immature Granulocytes % (auto) 0.2 %; Lymphocytes # (auto) 1.71 K/uL (1.20-3.40); Mean Corpuscular Hemoglobin 30.7 pg (25.0-34.0); Monocytes # (auto) 0.68 K/uL (0.11-0.59); Monocytes % (auto) 11.1 %; Neutrophils # (auto) 3.51 K/uL (1.40-6.50); Neutrophils % (auto) 57.6 %; Platelet Count 283 K/uL (130-400); RDW Coefficient of Variation 13.2 % (11.5-14.5); RDW Standard Deviation 45.1 fL (36.4-46.3)
[2023-04-21 10:35] LABS: BUN Creatinine Ratio 14.1 (10-20); Calcium 8.6 mg/dl (8.6-10.3); Creatinine Clr Calc Pharmacy 97.8 ml/min; Est GFR (African American) 108.8 ml/min; Est GFR (Non-African American) 93.9 ml/min; Potassium 3.6 mmol/L (3.5-5.1)
[2023-04-21 10:43] LABS: ANTI-Xa, UFH(UnfractionatedHep 0.74 IU/ml (0.3-0.7)
--- NOTE | 2023-04-21 11:08 | Electrocardiogram Report ---
Test Reason : Blood Pressure : / mmHG Vent. Rate : 057 BPM Atrial Rate : 057 BPM P-R Int : 144 ms QRS Dur : 076 ms QT Int : 408 ms P-R-T Axes : 014 018 030 degrees QTc Int : 397 ms Sinus bradycardia Low voltage QRS Borderline ECG When compared with ECG of 10-JAN-2018 15:59, No significant change was found Confirmed by Naun Christian ([id number]) on 04/21/2023 11:08:28 AM Referred By: REFERRED SELF Confirmed By:Neal Christian
[2023-04-21] MEDS: ACETAMINOPHEN 325 MG TAB PO PRN (14:38)
--- NOTE | 2023-04-21 18:10 | Hospitalist Progress Note ---
Date of Service April 21, 2023 delayed entry date of service noted above Assessment & Plan (1) Pulmonary embolism: Plan: Per admitting service notes with addendum: 57-year-old female with past medical history significant for hypothyroidism, dyspnea on exertion, history of mitral valve prolapse, benign neoplasm of rectosigmoid junction, plantar fasciitis, history of diverticulitis, history of depression, presents with 1 week of back spasms. Saw PCP yesterday was prescribed muscle relaxant but it was not helping so he came here and imaging studies showed right pulm embolism. Currently denies any chest pain or shortness of breath. Patient had workup with stress echo in December 2022 for dyspnea on exertion which was negative but showed small pericardial effusion. Denies any fevers. No headache. No abdominal pain. Normal bowel and bladder movements. Currently resting comfortably and hemodynamically stable. ACUTE PULMONARY EMBOLISM Small nonocclusive pulm embolus in the right pulmonary artery Having right upper back spasms for last 1 week Patient states lately she has been more sedentary Patient remained stable, no hypoxia continue Heparin transition to Eliquis next day Risk factor for development of acute PE is likely being sedentary for the past month Will need referral to hematology service Pericardial effusion Small posterior pericardial fusion on the CAT scan Was also found in the stress echo done on December 2002 Echo: EF 65 to 70%, small circumferential pericardial effusion, no echocardiographic indications of cardiac tamponade Follow an outpatient Possible colitis on CAT scan Patient does not seem to have any symptoms. Needs follow-up Hypothyroidism On Synthyroid Admission and Anticipated Discharge Date Admission Date: April 21, 2023 Subjective ff up for acute PE, etc seen resting in bed, comfortable states she feels fine overall chest pain, back pain improving no chest pain, dyspnea, palpitations, dizziness no other symptoms no bleeding Review of Systems Review of Systems: all noted and negative except for above Physical Exam Physical Exam: General- oriented x 3, not in distress, speaks in sentences with no effort or accessory muscle use Eyes- anicteric Neck- no JVD Lungs- clear breath sounds bilaterally, no rales/wheezes Heart- normal rate, regular rhythm; no murmurs Abdomen- normal bowel sounds, nondistended, soft, nontender Extremities- no pretibial edema, no calf tenderness Neuro- alert, oriented x 3; no gross focal neurologic deficits Skin- warm & dry Results & Data Results & Data Vital Signs (Past 12 Hours) Vital Signs Pulse Resp BP Pulse Ox 04/21/23 17:52 70 23 94 04/21/23 16:35 66 04/21/23 16:00 62 13 125/78 94 04/21/23 14:00 69 22 04/21/23 13:00 52 L 21 96 04/21/23 12:00 65 24 123/70 94 04/21/23 11:00 61 17 98 04/21/23 10:00 64 20 140/80 98 04/21/23 08:00 144/82 H 04/21/23 08:00 57 L 19 98 04/21/23 07:01 61 04/21/23 07:00 59 L 16 97 all noted and reviewed including below (1) Pulmonary embolism Acute cor pulmonale presence: without acute cor pulmonale Chronicity: acute Pulmonary embolism type: unspecified Qualified Code(s): I26.99 - Other pulmonary embolism without acute cor pulmonale
[2023-04-21 19:33] LABS: ANTI-Xa, UFH(UnfractionatedHep 0.66 IU/ml (0.3-0.7)
[2023-04-22 04:05] LABS: ANTI-Xa, UFH(UnfractionatedHep 0.75 IU/ml (0.3-0.7)
[2023-04-22] MEDS: LEVOTHYROXINE SODIUM 75 MCG TABLET PO SCH (05:57)
[2023-04-22] MEDS: ACETAMINOPHEN 325 MG TAB PO PRN (06:02)
[2023-04-22 11:11] LABS: ANTI-Xa, UFH(UnfractionatedHep 0.75 IU/ml (0.3-0.7)
[2023-04-22] MEDS ORDERED: APIXABAN 5 MG TABLET PO SCH (11:15)
[2023-04-22] MEDS: HEPARIN SODIUM/DEXTROSE 25,000 UNITS/500 ML BAG IV SCH (11:18)
[2023-04-22 12:04] LABS: Basophils # (auto) 0.05 K/uL (0.00-0.20); Basophils % (auto) 1.1 %; Eosinophils # (auto) 0.13 K/uL (0.00-0.50); Eosinophils % (auto) 2.9 %; Hematocrit (blood only) 40.9 % (37.0-47.0); Hemoglobin 13.4 g/dl (12.0-16.0); Immature Granulocytes # (auto) 0.01 K/uL (0.01-0.20); Immature Granulocytes % (auto) 0.2 %; Lymphocytes # (auto) 1.37 K/uL (1.20-3.40); Lymphocytes % (auto) 30.2 %; Mean Corpuscular Hemoglobin 30.6 pg (25.0-34.0); Mean Corpuscular Hgb Conc 32.8 g/dL (32.0-36.0); Mean Corpuscular Volume 93.4 fL (80.0-100.0); Mean Platelet Volume 10.4 fL (9.4-12.4); Monocytes # (auto) 0.49 K/uL (0.11-0.59); Monocytes % (auto) 10.8 %; Neutrophils # (auto) 2.48 K/uL (1.40-6.50); Neutrophils % (auto) 54.8 %; Platelet Count 264 K/uL (130-400); RDW Coefficient of Variation 13.2 % (11.5-14.5); RDW Standard Deviation 45.5 fL (36.4-46.3); Red Blood Count 4.38 M/uL (4.20-5.40); White Blood Count 4.53 K/ul (4.8-10.8)
[2023-04-22 12:30] LABS: BUN Creatinine Ratio 17.9 (10-20); Calcium 8.9 mg/dl (8.6-10.3); Creatinine Clr Calc Pharmacy 88.4 ml/min; Est GFR (African American) 97.1 ml/min; Est GFR (Non-African American) 83.8 ml/min; Potassium 3.8 mmol/L (3.5-5.1)
--- NOTE | 2023-04-22 18:14 | Hospitalist Progress Note ---
Date of Service April 22, 2023 Assessment & Plan (1) Pulmonary embolism: Plan: Per admitting service notes with addendum: 57-year-old female with past medical history significant for hypothyroidism, dyspnea on exertion, history of mitral valve prolapse, benign neoplasm of rectosigmoid junction, plantar fasciitis, history of diverticulitis, history of depression, presents with 1 week of back spasms. Saw PCP yesterday was prescribed muscle relaxant but it was not helping so he came here and imaging studies showed right pulm embolism. Currently denies any chest pain or shortness of breath. Patient had workup with stress echo in December 2022 for dyspnea on exertion which was negative but showed small pericardial effusion. Denies any fevers. No headache. No abdominal pain. Normal bowel and bladder movements. Currently resting comfortably and hemodynamically stable. ACUTE PULMONARY EMBOLISM Small nonocclusive pulm embolus in the right pulmonary artery Having right upper back spasms for last 1 week Patient states lately she has been more sedentary Patient remained stable, no hypoxia Transition from heparin to Eliquis Risk factor for development of acute PE is likely being sedentary for the past month Will need referral to hematology service Pericardial effusion Small posterior pericardial fusion on the CAT scan Was also found in the stress echo done on December 2002 Echo: EF 65 to 70%, small circumferential pericardial effusion, no echocardiographic indications of cardiac tamponade Follows an outpatient Possible colitis on CAT scan Patient does not seem to have any symptoms. Needs follow-up Hypothyroidism On Synthyroid Discharge to home PCP in 1 week plan of care discussed with patient in detail and at length all questions answered She is understanding, agreeable, comfortable with the plan of care Admission and Anticipated Discharge Date Admission Date: April 21, 2023 Subjective Follow-up for acute PE, etc. Seen resting in bed, comfortable, not in distress States she feels fine overall Right-sided back pain improving No shortness of breath, dizziness, palpitations No other new symptoms States she is ready for discharge today Review of Systems Review of Systems: all noted and negative except for above Physical Exam Physical Exam: General- oriented x 3, not in distress, speaks in sentences with no effort or accessory muscle use Eyes- anicteric Neck- no JVD Lungs- clear breath sounds bilaterally, no rales/wheezes Heart- normal rate, regular rhythm; no murmurs Abdomen- normal bowel sounds, nondistended, soft, nontender Extremities- no pretibial edema, no calf tenderness Neuro- alert, oriented x 3; no gross focal neurologic deficits Skin- warm & dry Results & Data Results & Data Vital Signs (Past 12 Hours) Vital Signs Temp Pulse Pulse Resp BP Pulse Ox Pulse Ox 04/22/23 13:52 36.5 C 74 16 122/74 96 04/22/23 12:00 36.5 C 74 16 122/74 96 04/22/23 10:26 96 04/22/23 08:30 04/22/23 07:59 36.5 C 60 16 143/78 H 96 04/22/23 07:40 73 O2 Del Method O2 Del Method 04/22/23 13:52 04/22/23 12:00 Room Air 04/22/23 10:26 Room Air 04/22/23 08:30 Room Air 04/22/23 07:59 Room Air 04/22/23 07:40 all noted and reviewed including below (1) Pulmonary embolism Acute cor pulmonale presence: without acute cor pulmonale Chronicity: acute Pulmonary embolism type: unspecified Qualified Code(s): I26.99 - Other pulmonary embolism without acute cor pulmonale
--- NOTE | 2023-04-22 18:19 | Discharge Summary ---
Discharge Summary Date of Service April 22, 2023 Notes For Next Care Provider Medication Changes From Visit Eliquis 10 mg twice daily x 7 days, then 5 mg twice daily Admission HPI Per Admitting Provider 57-year-old female with past medical history significant for hypothyroidism, dyspnea on exertion, history of mitral valve prolapse, benign neoplasm of rectosigmoid junction, plantar fasciitis, history of diverticulitis, history of depression, presents with 1 week of back spasms. Saw PCP yesterday was prescribed muscle relaxant but it was not helping so he came here and imaging studies showed right pulm embolism. Currently denies any chest pain or shortness of breath. Patient had workup with stress echo in December 2022 for dyspnea on exertion which was negative but showed small pericardial effusion. Denies any fevers. No headache. No abdominal pain. Normal bowel and bladder movements. Currently resting comfortably and hemodynamically stable. Past medical history. As mentioned above Past surgical history. Uterine fibroids ablation. Breast biopsy. Colonoscopy. Hemorrhoidectomy. Right total thyroidectomy. Sinus surgery Social history. . No smoking. Alcohol rare. No drug use. Family history. Sister had breast cancer. Mother had diabetes, hypertension. Father has hypertension. Brother had pancreatic cancer Admission Exam Per Admitting Provider General- Not in distress Head- atraumatic Eyes- PERRL. ENT- oropharynx clear Neck- supple, no JVD. Lungs- clear to auscultation, no wheezing or crackles. Heart- regular rhythm; no murmur, no gallop. Abdomen- normal bowel sounds, soft, nontender, no distension. Extremities- no pretibial edema, no erythema. no calf tenderness Neuro- alert, oriented x 3; PERRL, no facial palsy; no dysarthria; moves extremities. Skin- warm & dry Principal Dx & Hospital Course #1 = Principal Diagnosis (1) Pulmonary embolism: Per admitting service notes with addendum: 57-year-old female with past medical history significant for hypothyroidism, dyspnea on exertion, history of mitral valve prolapse, benign neoplasm of rectosigmoid junction, plantar fasciitis, history of diverticulitis, history of depression, presents with 1 week of back spasms. Saw PCP yesterday was prescribed muscle relaxant but it was not helping so he came here and imaging studies showed right pulm embolism. Currently denies any chest pain or shortne ss of breath. Patient had workup with stress echo in December 2022 for dyspnea on exertion which was negative but showed small pericardial effusion. Denies any fevers. No headache. No abdominal pain. Normal bowel and bladder movements. Currently resting comfortably and hemodynamically stable. ACUTE PULMONARY EMBOLISM Small nonocclusive pulm embolus in the right pulmonary artery Having right upper back spasms for last 1 week Patient states lately she has been more sedentary Patient remained stable, no hypoxia Transition from heparin to Eliquis Risk factor for development of acute PE is likely being sedentary for the past month Will need referral to hematology service Pericardial effusion Small posterior pericardial fusion on the CAT scan Was also found in the stress echo done on December 2002 Echo: EF 65 to 70%, small circumferential pericardial effusion, no echocardiographic indications of cardiac tamponade Follows an outpatient Possible colitis on CAT scan Patient does not seem to have any symptoms. Needs follow-up Hypothyroidism On Synthyroid Discharge to home PCP in 1 week plan of care discussed with patient in detail and at length all questions answered She is understanding, agreeable, comfortable with the plan of care Discharge Exam General- oriented x 3, not in distress, speaks in sentences with no effort or accessory muscle use Eyes- anicteric Neck- no JVD Lungs- clear breath sounds bilaterally, no rales/wheezes Heart- normal rate, regular rhythm; no murmurs Abdomen- normal bowel sounds, nondistended, soft, nontender Extremities- no pretibial edema, no calf tenderness Neuro- alert, oriented x 3; no gross focal neurologic deficits Skin- warm & dry Updated Medication List Medication Instructions Recorded Confirmed Type levothyroxine 75 mcg tablet 75 mcg PO DAILY 04/21/23 04/21/23 History tizanidine 4 mg tablet 4 mg PO TID PRN Muscle Spasm 04/21/23 04/21/23 History apixaban 5 mg tablet (Eliquis) 5 mg PO UD #74 tabs 04/22/23 Rx Hospital Stay Data Consultations 04/20/23 23:51 ED Decision to Admit Stat Diagnostic Imagining Performed Laboratory Results WBC 4.53 K/ul (4.8-10.8) L 04/22/23 11:40 RBC 4.38 M/uL (4.20-5.40) 04/22/23 11:40 Hgb 13.4 g/dl (12.0-16.0) 04/22/23 11:40 Hct 40.9 % (37.0-47.0) 04/22/23 11:40 MCV 93.4 fL (80.0-100.0) 04/22/23 11:40 MCH 30.6 pg (25.0-34.0) 04/22/23 11:40 MCHC 32.8 g/dL (32.0-36.0) 04/22/23 11:40 RDW Std Deviation 45.5 fL (36.4-46.3) 04/22/23 11:40 RDW Coeff of Celestino 13.2 % (11.5-14.5) 04/22/23 11:40 Plt Count 264 K/uL (130-400) 04/22/23 11:40 MPV 10.4 fL (9.4-12.4) 04/22/23 11:40 Immature Gran % (Auto) 0.2 % 04/22/23 11:40 Neut % (Auto) 54.8 % 04/22/23 11:40 Lymph % (Auto) 30.2 % 04/22/23 11:40 [place] % (Auto) 10.8 % 04/22/23 11:40 Eos % (Auto) 2.9 % 04/22/23 11:40 Baso % (Auto) 1.1 % 04/22/23 11:40 Neut # (Auto) 2.48 K/uL (1.40-6.50) 04/22/23 11:40 Lymph # (Auto) 1.37 K/uL (1.20-3.40) 04/22/23 11:40 [place] # (Auto) 0.49 K/uL (0.11-0.59) 04/22/23 11:40 Eos # (Auto) 0.13 K/uL (0.00-0.50) 04/22/23 11:40 Baso # (Auto) 0.05 K/uL (0.00-0.20) 04/22/23 11:40 Immature Gran # (Auto) 0.01 K/uL (0.01-0.20) 04/22/23 11:40 PT 10.6 Seconds (9.0-12.0) 04/20/23 00:01 INR 1.0 (0.9-1.1) 04/20/23 00:01 APTT 30 Seconds (21-31) 04/20/23 00:01 PTT Ratio 1.1 04/20/23 00:01 Heparin Anti-Xa, Unfract 0.75 IU/ml (0.3-0.7) H* 04/22/23 10:14 Sodium 141 mmol/L (136-145) 04/22/23 11:40 Potassium 3.8 mmol/L (3.5-5.1) 04/22/23 11:40 Chloride 107 mmol/L (98-107) 04/22/23 11:40 Carbon Dioxide 28 mmol/L (21-32) 04/22/23 11:40 Anion Gap 6 (3-11) 04/22/23 11:40 BUN 14 mg/dl (6-23) 04/22/23 11:40 Creatinine 0.78 mg/dl (0.6-1.2) 04/22/23 11:40 Est Cr Clr Drug Dosing 88.4 ml/min 04/22/23 11:40 Est GFR ( Amer) 97.1 ml/min 04/22/23 11:40 Est GFR (Non-Af Amer) 83.8 ml/min 04/22/23 11:40 BUN/Creatinine Ratio 17.9 (10-20) 04/22/23 11:40 Glucose 51 mg/dl (70-99(Fasting)) L* 04/22/23 11:40 Calcium 8.9 mg/dl (8.6-10.3) 04/22/23 11:40 Magnesium 2.0 mg/dl (1.7-2.4) 04/21/23 09:37 Total Bilirubin 0.5 mg/dl (0.2-1.0) 04/20/23 16:27 AST 23 U/L (13-39) 04/20/23 16:27 ALT 21 U/L (7-52) 04/20/23 16:27 Alkaline Phosphatase 45 U/L (34-104) 04/20/23 16:27 Troponin I High Sens 2.4 pg/ml (0-14) 04/20/23 16:27 Total Protein 7.3 gm/dl (6.0-8.3) 04/20/23 16:27 Albumin 4.4 gm/dl (3.4-5.0) 04/20/23 16:27 Globulin 2.9 gm/dl (2.5-4.0) 04/20/23 16:27 Albumin/Globulin Ratio 1.5 (0.9-2) 04/20/23 16:27 TSH 1.744 uIu/ml (0.300-4.500) 04/20/23 16:27 Urine Color Yellow 04/20/23 16:35 Urine Appearance Clear (Clear) 04/20/23 16:35 Urine pH 5.0 (4.5-7.5) 04/20/23 16:35 Ur Specific [place] 1.013 (1.000-1.030) 04/20/23 16:35 Urine Protein Negative (Negative) 04/20/23 16:35 Urine Glucose (UA) Negative (Negative) 04/20/23 16:35 Urine Ketones Trace (Negative) H 04/20/23 16:35 Urine Blood Negative (Negative) 04/20/23 16:35 Urine Nitrite Negative (Negative) 04/20/23 16:35 Urine Bilirubin Negative (Negative) 04/20/23 16:35 Urine Urobilinogen Negative (Negative) 04/20/23 16:35 Ur Leukocyte Esterase Negative (Negative) 04/20/23 16:35 Impressions Abdomen/Pelvis CT 04/20/23 17:46 Exam(s): CT ABDOMEN + PELVIS Without Contrast EXAM: CT Abdomen and Pelvis Without Intravenous Contrast CLINICAL HISTORY: Reason for exam: right flank pain. TECHNIQUE: Axial computed tomography images of the abdomen and pelvis without intravenous contrast. CTDI is 27.66 mGy and DLP is 1294.13 mGy-cm. Automated exposure control was utilized for the study. A dose lowering technique was utilized adhering to the principles of ALARA. COMPARISON: CT abdomen/pelvis on 12/15/2009. FINDINGS: Lung bases: Lower lung atelectasis. Heart: Small to moderate pericardial effusion. ABDOMEN: Liver: Unremarkable. Gallbladder and bile ducts: Unremarkable. No calcified stones. No ductal dilation. Pancreas: Unremarkable. No ductal dilation. Spleen: Unremarkable. No splenomegaly. Adrenals: Unremarkable. No mass. Kidneys and ureters: Unremarkable. No hydronephrosis or stone. Stomach and bowel: Mild prominence of the wall of the ascending colon with mild fat stranding could represent colitis. Fluid and gas-filled small bowel loops may represent enteritis in the appropriate clinical setting. Evaluation of the stomach is limited by underdistention. Diverticulosis without evidence of diverticulitis. PELVIS: Appendix: Normal appendix. Bladder: Unremarkable. No stones. Reproductive: Unremarkable as visualized. ABDOMEN and PELVIS: Intraperitoneal space: Unremarkable. No free air. No significant fluid collection. Bones/joints: Grade 1/2 anterolisthesis of L5 on S1. Probable small bone islands in the L5 vertebral body and pelvic bones. Degenerative changes of the spine. No acute fracture. No dislocation. Soft tissues: Unremarkable. Vasculature: Phleboliths in the pelvis. No abdominal aortic aneurysm. Lymph nodes: Unremarkable. No enlarged lymph nodes. IMPRESSION: 1. Small to moderate pericardial effusion. 2. Mild prominence of the wall of the ascending colon with mild fat stranding could represent colitis. 3. Fluid and gas-filled small bowel loops may represent enteritis in the appropriate clinical setting. Electronically signed by: Pino Majano M.D. 04/20/23 19:57 PM Chest CTA 04/20/23 21:36 CR Exam(s): CTA CHEST IV Amt: 87 ml opti 320 EXAM: CT Angiography Chest With Intravenous Contrast CLINICAL HISTORY: Reason for exam: PE. TECHNIQUE: Axial computed tomographic angiography images of the chest with intravenous contrast. Automated exposure control was utilized for the study. A dose lowering technique was utilized adhering to the principles of ALARA. MIP reconstructed images were created and reviewed. COMPARISON: None available FINDINGS: Pulmonary arteries: Small nonocclusive pulmonary embolus within the right pulmonary artery. Aorta: No acute findings. No thoracic aortic aneurysm. Lungs: Unremarkable. No mass. No consolidation. Pleural space: Unremarkable. No significant effusion. No pneumothorax. Heart: Cardiomegaly with small posterior pericardial effusion measuring 12 mm. No right heart strain. Bones/joints: No acute fracture. No dislocation. Soft tissues: Unremarkable. Lymph nodes: Unremarkable. No enlarged lymph nodes. IMPRESSION: 1. Small nonocclusive pulmonary embolus within the right pulmonary artery. 2. No right heart strain. 3. Cardiomegaly with small posterior pericardial effusion measuring 12 mm. Communications: Call Doctor Pulmonary Embolism Electronically signed by: Radha Brennan MD 04/20/23 23:14 PM Venous Doppler Study 04/21/23 09:00 BILATERAL LOWER EXTREMITY VENOUS DOPPLER HISTORY: Screening study in a patient with pulmonary emboli Acute PE.DVT? COMPARISON STUDY: None. FINDINGS: There is normal compressibility, flow, and augmentation within the bilateral lower extremity deep venous systems. IMPRESSION: No DVT within the right or left lower extremity. ACT 112: Negative or not required by law. Electronically signed by: Richi Paniagua M.D. 04/21/2023 10:01 AM Pending Results Patient Have Any Pending Studies at Discharge: No Discharge Instructions Given to Patient (Per Discharging Provider) PLEASE REFER TO YOUR NEW MEDICATION LIST AND FOLLOW INSTRUCTIONS CAREFULLY. YOUR NEW MEDICATIONS INCLUDE: ELIQUIS- blood thinner for treatment of pulmonary embolism DO NOT TAKE MEDICATIONS UNDER THE CLASS OF NSAIDS- IBUPROFEN, NAPROXEN, ETC PLEASE CALL YOUR PRIMARY CARE PHYSICIAN OR RETURN TO THE ER IF WITH WORSENING OF SYMPTOMS, INCLUDING CHEST PAIN, SHORTNESS OF BREATH, FEVER/CHILLS, UNCONTROLLED BLEEDING. FOLLOW UP WITH PRIMARY CARE PHYSICIAN IN 1 WEEK. THE CLINIC WILL BE CALLING YOU SOON FOR THE APPOINTMENT. TAKE CARE. Total Time Total Time Spent Total Time Spent (In Minutes): >30 minutes
[2023-04-24 22:58] LABS: Anti-Thrombin III Activity 117 % normal (80-135); Protein S Functional(Activity) 92 % normal (60-140)
[2023-04-28 17:32] LABS: Factor 5 Mutation NEGATIVE
== END 2023-04-22 14:52 | disposition home health service (06) | DRG 176 ==
LOC: ED 15:37 → EDINP 04-21 02:55 → 2N 04-21 04:14